=== PATIENT | male | born 1980 | race Two or more races ===

== ENCOUNTER 2021-09-25 09:30 | Outpatient (CLI) | payer OTHER | END 2021-09-25 09:31 | disposition home or self-care (01) | LOC: LAB 09:30 | PROVIDERS: ATTEND Internal Medicine | DX: D53.9 Nutritional anemia, unspecified (principal); Z12.11 Encounter for screening for malignant neoplasm of colon ==

== ENCOUNTER 2021-10-03 08:53 | Outpatient (CLI) | payer OTHER | END 2021-10-03 09:15 | disposition home or self-care (01) | LOC: TOM 08:53 | PROVIDERS: ATTEND Internal Medicine | DX: K42.9 Umbilical hernia without obstruction or gangrene (principal) ==